=== PATIENT | male | born 1965 | race Caucasian/White ===

== ENCOUNTER 2022-09-06 17:55 | Emergency (ER) | payer BC ==
[~2022-09-06] VITALS: Ht 177.8 cm; Wt 161.9 kg
[2022-09-06 18:16] VITALS: BP_SYST 149
--- NOTE | 2022-09-06 19:06 | NUR ---
ER at bedside examining patient.
--- NOTE | 2022-09-06 19:08 | NUR ---
PT BIB WITH A C/O COUGH FOR THE PAST 2 DAYS. PT WENT TO A [facility] YESTERDAY WHERE THEY PRESCRIBED STERIODS. PT HAS SOB BUT DENIES CHEST PAIN. PT BREATHING LOOKS SLIHTLY LABORED. PT HAS NO MEDICAL HISTORY AND DENIES TAKING ANY MEDICATIONS. PT STATES THAT HE HAS NOT SLEPT IN 24 HOURS DO TO THE COUGHING AND SECRETIONS. PT IS IN BED 3 WITH AT BEDSIDE.
[2022-09-06] MEDS ORDERED: BENZONATATE 100 MG CAPSULE (TESSALON) PO ONE (19:15)
[2022-09-06] MEDS ORDERED: guaiFENesin/DEXTROMETHORPHAN 10 ML UDC PO ONE (19:15)
[2022-09-06 19:37] LABS: BASOPHILS % (AUTO) 0.4 % (0.0-2.0); EOSINOPHILS % (AUTO) 0.5 % (0.0-4.0); HEMATOCRIT 38.4 % (36-54); HEMOGLOBIN 13.6 g/dL (14.0-18.0); LYMPHOCYTES # (AUTO) 0.6 K/uL (1.0-5.5); MEAN CORPUSCULAR HEMOGLOBIN 38 pg (27-31); MEAN CORPUSCULAR HGB CONC 36 % (32-36); MEAN CORPUSCULAR VOLUME 106 fL (79.0-98.0); MONOCYTES # (AUTO) 0.6 K/uL (0.0-1.0); MONOCYTES % (AUTO) 14.9 % (1.7-9.3); NEUTROPHILS # (AUTO) 2.7 K/uL (1.8-7.7); NEUTROPHILS % (AUTO) 69.2 % (40.0-70.0); PLATELET COUNT (AUTO) 72 K/uL (130-430); RED BLOOD CELL COUNT(AUTO) 3.64 MIL/uL (4.2-6.2); RED CELL DISTRIBUTION WIDTH 13.4 % (9.0-15.0); WHITE BLOOD COUNT (AUTO) 3.9 K/uL (4.8-10.8)
--- NOTE | 2022-09-06 19:40 | NUR ---
REPORT GIVEN TO
[2022-09-06 19:59] LABS: ANION GAP 5 (5-15); CALCIUM 7.6 mg/dL (8.4-11.0); CHLORIDE 102 mmol/L (98-107); CREATININE 0.75 mg/dL (0.55-1.30); GFR AFRICAN AMERICAN 138 mL/min (>90); GLUCOSE 282 mg/dL (70-99); UREA NITROGEN, BLOOD 5 mg/dL (8-21)
[2022-09-06 20:05] LABS: ALANINE AMINOTRANSFERASE 29 U/L (12-78); ALBUMIN 2.5 g/dL (3.4-4.8); ASPARTATE AMINOTRANSFERASE 37 U/L (10-37); TOTAL BILIRUBIN 1.6 mg/dL (0.0-1.0)
[2022-09-06] MEDS ORDERED: cefTRIAXone 1 GM VIAL IM ONE (22:00)
[2022-09-06] MEDS ORDERED: AZITHROMYCIN 250 MG TABLET PO ONE (22:00)
[2022-09-06] MEDS ORDERED: ZIT250 PO (22:13)
[2022-09-06] MEDS ORDERED: METF-381 PO (22:13)
[2022-09-06] MEDS ORDERED: BENZ100C92 PO (22:13)
--- NOTE | 2022-09-06 23:21 | NUR ---
Patient given written and verbal discharge instructions and verbalizes understanding. ER MD discussed with patient the results and treatment provided. Patient in stable condition. ID arm band removed. Rx of Benzonatate,Metformin,Azithromycin given. Patient educated on pain management and to follow up with PMD. Pain Scale 0/10. Opportunity for questions provided and answered. Medication side effect fact sheet provided.
[2022-09-06 23:23] VITALS: BP_SYST 144
== END 2022-09-06 23:23 | disposition home or self-care (01) ==
LOC: SED 17:55
DX: J40 Bronchitis, not specified as acute or chronic (principal); E11.9 Type 2 diabetes mellitus without complications; I10 Essential (primary) hypertension; R05.9 Cough, unspecified; R06.02 Shortness of breath; Z88.5 Allergy status to narcotic agent; Z88.6 Allergy status to analgesic agent; Z79.899 Other long term (current) drug therapy; Z20.822 Contact with and (suspected) exposure to COVID-19
CPT/HCPCS: 99285; 71045; 87426; 80053; 83880; 85025; 85379; 84484; 36415; 93005; 96372; 87804 ×2; J0696; Q0144